=== PATIENT | female | born 1985 | race Caucasian/White ===

== ENCOUNTER 2020-06-29 14:35 | Outpatient (CLI) | payer BC, SELFPAY ==
--- NOTE | 2020-06-29 14:42 | XR_ITS ---
WS: [id number] DEXA (DUAL ENERGY X-RAY ABSORPTIOMETRY) Bone mineral density was performed using a [employer] machine. 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 COMPARISON: None available. Lumbar spine BMD (L1-L4): 1.189 g/cm2 T score: 0.1 Z score: -0.5 Total hip BMD: Left: 1.129 g/cm2. T score: 1.0 Z score: 0.7 Right: 1.115 g/cm2. T score: 0.9 Z score: 0.5 XR/XR DEXA axial skeleton* [id number] IMPRESSION: NORMAL BONE MINERAL DENSITY based upon the WHO classification for females.
== END 2020-06-29 14:36 | disposition home or self-care (01) ==
LOC: RADWPI 14:38
PROVIDERS: PCP Physician Assistant; Visit Provider Physician Assistant
DX: Z78.0 Asymptomatic menopausal state (principal)
CPT/HCPCS: 77080